=== PATIENT | male | born 1995 | race African-American/Black ===

== ENCOUNTER 2019-03-01 18:58 | Emergency (ER) | payer OTHER ==
[~2019-03-01] VITALS: Ht 182.9 cm; Wt 103.0 kg
[2019-03-01] MEDS ORDERED: MORPHINE SULFATE 4 MG/ML CPJ (NOT FOR IM USE) IV STA (22:19)
[2019-03-01] MEDS ORDERED: KETOROLAC 30MG/ML VIAL IV STA (22:19)
[2019-03-01] MEDS ORDERED: ONDANSETRON HCL 4MG/2ML INJ IV STA (22:19)
[2019-03-01] MEDS ORDERED: SODIUM CHLORIDE 0.9% 1,000 ML IV ONE (22:19)
[2019-03-01] MEDS ORDERED: BACITRACIN ZINC OINT UDPKT TOP ONE (22:30)
[2019-03-01] MEDS ORDERED: TETANUS, DIPHTHERIA, PERTUSSIS VAC/PF 0.5ML (>7YR OLD) IM ONE (22:30)
[2019-03-01 23:58] VITALS: BP 132/80
== END 2019-03-01 23:58 | disposition home or self-care (01) ==
LOC: ER 18:58
DX: S72.091A Other fracture of head and neck of right femur, initial encounter for closed fracture (principal); S50.811A Abrasion of right forearm, initial encounter; S70.311A Abrasion, right thigh, initial encounter; I10 Essential (primary) hypertension; V03.10XA Pedestrian on foot injured in collision with car, pick-up truck or van in traffic accident, initial encounter; Y93.02 Activity, running; Y92.410 Unspecified street and highway as the place of occurrence of the external cause; Z23 Encounter for immunization
CPT/HCPCS: 73502; 90471; 90715; 96374; 96375; 99283; J1885; J2270; J2405; J7030

== ENCOUNTER 2020-01-25 03:56 | Emergency (ER) | payer SELFPAY ==
[~2020-01-25] VITALS: Ht 182.9 cm; Wt 101.0 kg
[2020-01-25] MEDS ORDERED: IBUPROFEN 400MG TABLET PO ONE (04:45)
[2020-01-25 04:49] VITALS: BP 180/99
[2020-01-25 05:14] LABS: CLARITY URINE CLEAR (CLEAR); COLOR URINE YELLOW (YELLOW); KETONES URINE NEGATIVE (NEGATIVE); LEUKOCYTE ESTERASE URINE TRACE (NEGATIVE); NITRITE URINE NEGATIVE (NEGATIVE); OCCULT BLOOD URINE NEGATIVE (NEGATIVE); PH URINE 5.5 (4.5-8.0); PROTEIN URINE NEGATIVE (NEGATIVE); SPECIFIC GRAVITY URINE 1.034 (1.005-1.030)
[2020-01-25] MEDS ORDERED: AZITHROMYCIN 500 MG TABLET PO ONE (06:00)
[2020-01-25] MEDS ORDERED: CEFTRIAXONE SODIUM 250 MG/VIAL IM ONE (06:00)
[2020-01-28 04:07] LABS: NEISSERIA GONORRHOEAE NAA Negative (Negative)
== END 2020-01-25 06:01 | disposition home or self-care (01) ==
LOC: ER 03:56
DX: N34.2 Other urethritis (principal); I10 Essential (primary) hypertension; F17.290 Nicotine dependence, other tobacco product, uncomplicated; F12.10 Cannabis abuse, uncomplicated
CPT/HCPCS: 81003; 82962; 87491; 87591; 99283